=== PATIENT | female | born 1990 | race Caucasian/White ===

== ENCOUNTER 2017-03-24 15:50 | Emergency (ER) | payer SELFPAY ==
[2017-03-24] MEDS ORDERED: Ketorolac 30 MG/ML SDV IVPUSH ONE (16:11)
[2017-03-24] MEDS ORDERED: Ondansetron 4 MG Tab.DIS PO ONE (17:12)
--- NOTE | 2017-03-24 17:13 | EDM.PDOCBH ---
ED HPI GENERAL MEDICAL PROBLEM - General Chief Complaint: Behavioral/Psych Stated Complaint: Medical clearance Time Seen by Provider: 03/24/17 16:10 Source of Information: Reports: Patient, RN Notes Reviewed History Limitations: Reports: No Limitations - History of Present Illness INITIAL COMMENTS - FREE TEXT/NARRATIVE: 26 year old female presents to ED for medical clearance for admission to [facility]. 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 She recently started IV use, "in last few months". She had 1 period of sobriety while incarcerated in the past and completed a 3 day medical detox shortly after that a few years ago. Patient is seeking treatment because she's "had enough of it". Last drug use was heroin and meth 2 days ago. Patient has Rx for saboxone that she obtained from a provider in [facility] "a few weeks ago" and took one yesterday that "really helped" with her withdrawal symptoms. Currently she is having chills, "pain all over", muscle twitching, nausea, and diarrhea. History of depression and anxiety, has been treated in the past, "but didn't stick with it". She does report that she self mutilates by cutting. Has one remote suicide attempt in her teen years. Denies suicidal ideation or thoughts of harming others. Patient has a 13 year smoking history of 1/2-1 PPD. Denies alcohol use. Generalized Pain Score (Numeric/FACES): 7 - Related Data Allergies Allergy/AdvReac Type Severity Reaction Status Date / Time No Known Allergies Allergy Verified 03/24/17 16:00 Home Meds: Home Meds Buprenorphine HCl/Naloxone HCl [Suboxone 12 mg-3 mg Sl Film] 1 film SL ASDIRECTED 03/24/17 [History] Ondansetron [Zofran ODT] 4 mg PO Q8H PRN #10 tab.dis 03/24/17 [Rx] Past Medical History HEENT History: Reports: Otitis Media Respiratory History: Reports: SOB, Other (See Below) Other Respiratory History: "because I have alot of smoke build-up in my lungs." Genitourinary History: Reports: UTI, Recurrent [employer] History: Reports: Musculoskeletal History: Reports: Back Pain, Chronic Psychiatric History: Reports: Addiction, Anxiety, Depression Hematologic History: Reports: Anemia, Iron Deficiency - Infectious Disease History Infectious Disease History: Reports: Chicken Pox Social & Family History - Tobacco Use Smoking Status *Q: Current Every Day Smoker Years of Tobacco use: 13 Packs/Tins Daily: 1 - Caffeine Use Caffeine Use: Reports: Coffee, Energy Drinks - Recreational Drug Use Recreational Drug Use: Yes Drug Use in Last 12 Months: Yes Recreational Drug Type: Reports: Heroin, Marijuana/Hashish, Methamphetamine, Other (see below) Other Recreational Drug Type: Suboxine Recreational Drug Use Frequency: Daily ED ROS GENERAL - Review of Systems Review Of Systems: See Below Constitutional: Reports: Chills, Malaise, Fatigue, Diaphoresis, Decreased Appetite HEENT: Reports: No Symptoms Respiratory: Reports: No Symptoms Cardiovascular: Reports: No Symptoms Endocrine: Reports: No Symptoms GI/Abdominal: Reports: Diarrhea, Nausea. Denies: Abdominal Pain, Constipation, Vomiting : Reports: No Symptoms Musculoskeletal: Reports: Back Pain, Muscle Pain Skin: Reports: No Symptoms (scarred laceration rehman to bilat wrists, healed), Other Neurological: Reports: Headache. Denies: Confusion, Dizziness, Seizure, Tremors , Difficulty Walking Psychiatric: Reports: Anxiety, Depression Hematologic/Lymphatic: Reports: No Symptoms Immunologic: Reports: No Symptoms ED EXAM, BEHAVIORAL HEALTH - Physical Exam Exam: See Below Exam Limited By: No Limitations General Appearance: Alert, No Apparent Distress Eye Exam: Bilateral Eye: PERRL Ears: Normal External Exam Nose: Normal Inspection Throat/Mouth: Normal Inspection, Normal Lips, Normal Voice Head: Atraumatic, Normocephalic Neck: Normal Inspection, Full Range of Motion Respiratory/Chest: No Respiratory Distress, Lungs Clear, Normal Breath Sounds, No Accessory Muscle Use, Chest Non-Tender Cardiovascular: No Edema, No Murmur, Tachycardia (IB=698, regular) GI/Abdominal: Normal Bowel Sounds, Soft, Non-Tender, No Organomegaly, No Distention Back Exam: Normal Inspection Extremities: Normal Inspection, Normal Range of Motion, Non-Tender Neurological: Alert, Normal Mood/Affect, Normal Cognition, Oriented x 3 Psychiatric: Alert, Normal Affect, Normal Cognition, Normal Mood, Oriented Skin Exam: Warm, Dry, Intact, Normal color (No needle rehman noted to bilat antecubital fossa; patient states she is new to IV use and has never injected elsewhere) COURSE, BEHAVIORAL HEALTH COMP - Course Vital Signs: Last Vital Signs Temp 98.5 F 03/24/17 16:00 Pulse 106 H 03/24/17 16:00 Resp 16 03/24/17 16:00 BP 108/80 03/24/17 16:00 Pulse Ox 98 03/24/17 16:00 Orders, Labs, Meds: Active Orders 24 hr Category Date Time Status GC/CHLAMYDIA BY PCR [MOLEC] Stat Lab 03/24/17 19:25 Ordered Laboratory Tests 03/24/17 03/24/17 03/24/17 Range/Units 17:30 17:30 18:50 WBC 7.85 (3.98-10.04) K/mm3 RBC 4.89 (3.98-5.22) M/mm3 Hgb 14.0 (11.2-15.7) gm/L Hct 41.4 (34.1-44.9) % MCV 84.7 (79.4-94.8) fl MCH 28.6 (25.6-32.2) pg MCHC 33.8 (32.2-35.5) g/dl RDW Std Deviation 43.1 (36.4-46.3) fL Plt Count 228 (182-369) K/mm3 MPV 9.8 (9.4-12.3) fl Neut % (Auto) 68.4 (34.0-71.1) % Lymph % (Auto) 25.0 (19.3-51.7) % [place] % (Auto) 5.1 (4.7-12.5) % Eos % (Auto) 1.0 (0.7-5.8) Baso % (Auto) 0.5 (0.1-1.2) % Neut # (Auto) 5.37 (1.56-6.13) K/mm3 Lymph # (Auto) 1.96 (1.18-3.74) K/mm3 [place] # (Auto) 0.40 H (0.24-0.36) K/mm3 Eos # (Auto) 0.08 (0.04-0.36) K/mm3 Baso # (Auto) 0.04 (0.01-0.08) K/mm3 Sodium 144 (136-145) mEq/L Potassium 3.8 (3.5-5.1) mEq/L Chloride 107 (98-107) mEq/L Carbon Dioxide 25 (21-32) mEq/L Anion Gap 15.8 H (5-15) BUN 13 (7-18) mg/dL Creatinine 0.8 (0.55-1.02) mg/dL Est Cr Clr Drug Dosing 82.80 mL/min Estimated GFR (MDRD) > 60 (>60) mL/min BUN/Creatinine Ratio 16.3 (14-18) Glucose 95 (74-106) mg/dL Calcium 9.3 (8.5-10.1) mg/dL Total Bilirubin 0.3 (0.2-1.0) mg/dL AST 14 L (15-37) U/L ALT 20 (14-59) U/L Alkaline Phosphatase 66 (46-116) U/L Total Protein 7.5 (6.4-8.2) g/dl Albumin 3.7 (3.4-5.0) g/dl Globulin 3.8 gm/dL Albumin/Globulin Ratio 1.0 (1-2) TSH 3rd Generation 0.370 (0.358-3.74) uIU/mL Urine Color (Yellow) Urine Appearance (Clear) Urine pH (5.0-8.0) Ur Specific [place] (1.005-1.030) Urine Protein (Negative) Urine Glucose (UA) (Negative) Urine Ketones (Negative) Urine Occult Blood (Negative) Urine Nitrite (Negative) Urine Bilirubin (Negative) Urine Urobilinogen (0.2-1.0) Ur Leukocyte Esterase (Negative) Urine RBC (0-5) /hpf Urine WBC (0-5) /hpf Ur Epithelial Cells (0-5) /hpf Urine Bacteria (FEW) /hpf Urine Mucus (FEW) /hpf Urine HCG, Qual (NEGATIVE) Urine Opiates Screen Presumptive positive H (NEGATIVE) Ur Buprenorphine Scrn Presumptive positive H (NEGATIVE) Ur Oxycodone Screen Negative (NEGATIVE) Urine Methadone Screen Negative (NEGATIVE) Ur Propoxyphene Screen Negative (NEGATIVE) Ur Barbiturates Screen Negative (NEGATIVE) Ur Tricyclics Screen Negative (NEGATIVE) Ur Phencyclidine Scrn Negative (NEGATIVE) Ur Amphetamine Screen Presumptive positive H (NEGATIVE) U Methamphetamines Scrn Presumptive positive H (NEGATIVE) U Benzodiazepines Scrn Negative (NEGATIVE) U Cocaine Metab Screen Negative (NEGATIVE) U Marijuana (THC) Screen Presumptive positive H (NEGATIVE) Ethyl Alcohol 0.00 (0.00) gm% 03/24/17 03/24/17 Range/Units 18:50 18:50 WBC (3.98-10.04) K/mm3 RBC (3.98-5.22) M/mm3 Hgb (11.2-15.7) gm/L Hct (34.1-44.9) % MCV (79.4-94.8) fl MCH (25.6-32.2) pg MCHC (32.2-35.5) g/dl RDW Std Deviation (36.4-46.3) fL Plt Count (182-369) K/mm3 MPV (9.4-12.3) fl Neut % (Auto) (34.0-71.1) % Lymph % (Auto) (19.3-51.7) % [place] % (Auto) (4.7-12.5) % Eos % (Auto) (0.7-5.8) Baso % (Auto) (0.1-1.2) % Neut # (Auto) (1.56-6.13) K/mm3 Lymph # (Auto) (1.18-3.74) K/mm3 [place] # (Auto) (0.24-0.36) K/mm3 Eos # (Auto) (0.04-0.36) K/mm3 Baso # (Auto) (0.01-0.08) K/mm3 Sodium (136-145) mEq/L Potassium (3.5-5.1) mEq/L Chloride (98-107) mEq/L Carbon Dioxide (21-32) mEq/L Anion Gap (5-15) BUN (7-18) mg/dL Creatinine (0.55-1.02) mg/dL Est Cr Clr Drug Dosing mL/min Estimated GFR (MDRD) (>60) mL/min BUN/Creatinine Ratio (14-18) Glucose (74-106) mg/dL Calcium (8.5-10.1) mg/dL Total Bilirubin (0.2-1.0) mg/dL AST (15-37) U/L ALT (14-59) U/L Alkaline Phosphatase (46-116) U/L Total Protein (6.4-8.2) g/dl Albumin (3.4-5.0) g/dl Globulin gm/dL Albumin/Globulin Ratio (1-2) TSH 3rd Generation (0.358-3.74) uIU/mL Urine Color Yellow (Yellow) Urine Appearance Clear (Clear) Urine pH 7.0 (5.0-8.0) Ur Specific [place] 1.025 (1.005-1.030) Urine Protein Negative (Negative) Urine Glucose (UA) Negative (Negative) Urine Ketones Negative (Negative) Urine Occult Blood Negative (Negative) Urine Nitrite Negative (Negative) Urine Bilirubin Negative (Negative) Urine Urobilinogen 0.2 (0.2-1.0) Ur Leukocyte Esterase 1+ H (Negative) Urine RBC 0-5 (0-5) /hpf Urine WBC 5-10 H (0-5) /hpf Ur Epithelial Cells 0-5 (0-5) /hpf Urine Bacteria Few (FEW) /hpf Urine Mucus Few (FEW) /hpf Urine HCG, Qual Negative (NEGATIVE) Urine Opiates Screen (NEGATIVE) Ur Buprenorphine Scrn (NEGATIVE) Ur Oxycodone Screen (NEGATIVE) Urine Methadone Screen (NEGATIVE) Ur Propoxyphene Screen (NEGATIVE) Ur Barbiturates Screen (NEGATIVE) Ur Tricyclics Screen (NEGATIVE) Ur Phencyclidine Scrn (NEGATIVE) Ur Amphetamine Screen (NEGATIVE) U Methamphetamines Scrn (NEGATIVE) U Benzodiazepines Scrn (NEGATIVE) U Cocaine Metab Screen (NEGATIVE) U Marijuana (THC) Screen (NEGATIVE) Ethyl Alcohol (0.00) gm% Medications Discontinued Medications Generic Name Dose Route Start Last Admin Trade Name Freq PRN Reason Stop Dose Admin Azithromycin 1,000 mg 03/24/17 19:26 03/24/17 20:09 Zithromax PO 03/24/17 19:27 1,000 mg ONETIME ONE Administration Ceftriaxone Sodium 250 mg/ 0 mg 03/24/17 19:30 03/24/17 20:10 Lidocaine HCl 0.5 ml IM 0.5 syringe Q24H KARYN Administration Ondansetron HCl 4 mg 03/24/17 17:12 03/24/17 17:18 Zofran Odt PO 03/24/17 17:13 4 mg ONETIME ONE Administration Re-Assessment/Re-Exam: CBC, CMP, TSH are unremarkable. UA reveals 5-10 WBCs and 1+ leukocytes. Patient has no urinary symptoms, will send urine for culture. Hcg negative. UDS is positive for opioids, buprenorphine, meth, amphetamines, and THC. ETOH is 0. Later in her stay, the patient reported possible exposure to chlamydia. Will send urine Gc/chlamydia. This will take a couple hours to come back. She will be treated with Azithromycin 1000mg PO and Rocephin 250mg IM. Patient was resting with no acute withdrawal symptoms. Her vitals remained stable throughout her visit. She had no tachycardia. She has been medically cleared. I called and spoke to Katerina from [facility]. They have accepted the patient for the [facility]. They will come get her. I am hesitant to prescribe benzos due to the multiple drugs that the patient is using. We will treat her withdrawal symptoms with Benadryl and Zofran. When going over the discharge plan, the patient requested pain medication. I explained to her that we do not prescribe opioids for opioid withdrawal. She is prescribed suboxone and is also utilizing other opioids. Due to concerns for safety and mixing several opioids, I will not be prescribed her any controlled substances. She can take naproxyn for pain. Discharge instructions as documented. Departure - Departure Time of Disposition: 19:55 Disposition: Home, Self-Care 01 Condition: Good Clinical Impression: Substance abuse - Discharge Information Prescriptions: Ondansetron [Zofran ODT] 4 mg PO Q8H PRN #10 tab.dis PRN Reason: Nausea Instructions: Finding Treatment for Addiction Referrals: PCP,None [Primary Care Provider] - Forms: ED Department Discharge Additional Instructions: Go to [facility] for treatment Zofran 4mg every 8 hours as needed for nausea Benadryl 1-2 tabs every 6-8 hours as needed for withdrawal symptoms - My Orders Last 24 Hours: My Active Orders 03/24/17 19:25 GC/CHLAMYDIA BY PCR [MOLEC] Stat - Assessment/Plan Last 24 Hours: My Active Orders 03/24/17 19:25 GC/CHLAMYDIA BY PCR [MOLEC] Stat
[2017-03-24] MEDS ORDERED: Azithromycin 250 MG Tab PO ONE (19:26)
[2017-03-24] MEDS ORDERED: cefTRIAXone 250 MG, Lidocaine 1% 0.5 ML IM SCH ×2 (19:30)
[2017-03-24 21:54] LABS: C. TRACHOMATIS BY PCR NOT DETECTED; N. GONORRHOEAE BY PCR NOT DETECTED
== END 2017-03-24 20:20 | disposition home or self-care (01) ==
LOC: JD.ED 15:50
DX: F15.10 Other stimulant abuse, uncomplicated (principal); F11.10 Opioid abuse, uncomplicated; F12.10 Cannabis abuse, uncomplicated; F17.210 Nicotine dependence, cigarettes, uncomplicated
CPT/HCPCS: 36415; 80053; 80306; 81001; 81025; 84443; 85025; 87491; 87591; 96372; 99284; A9270; G0480; J0696; 99283

== ENCOUNTER 2017-03-26 17:35 | Emergency (ER) | payer SELFPAY ==
--- NOTE | 2017-03-26 19:01 | EDM.PDOC ---
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 UTI Time Seen by Provider: 03/26/17 18:24 - History of Present Illness INITIAL COMMENTS - FREE TEXT/NARRATIVE: 26-year-old female presents emergency room vaginal discharge. Patient was treated for GC and Chlamydia 2 days ago after suspected exposure however GC and Chlamydia testing was negative. Patient continues to have discharge present. It is a foul-smelling dark colored discharge. She does not have itching in the vaginal area. Patient denies any burning or frequency with urination no frequency no flank pain. Patient had urinalysis done on her visit here 2 days ago that was not diagnostic for UTI. She received oral Zithromax 1 g and IV Rocephin for the suspected STD. Generalized Pain Score (Numeric/FACES): 7 - Related Data Allergies Allergy/AdvReac Type Severity Reaction Status Date / Time No Known Allergies Allergy Verified 03/26/17 18:07 Home Meds: Home Meds Ondansetron [Zofran ODT] 4 mg PO Q8H PRN #10 tab.dis 03/24/17 [Rx] LORazepam [Ativan] 0 mg PO ASDIRECTED PRN 03/26/17 [History] traZODone 50 mg PO ASDIRECTED PRN 03/26/17 [History] Past Medical History HEENT History: Reports: Otitis Media Respiratory History: Reports: SOB, Other (See Below) Other Respiratory History: "because I have alot of smoke build-up in my lungs." Genitourinary History: Reports: UTI, Recurrent [employer] MANAGER History: Reports: Musculoskeletal History: Reports: Back Pain, Chronic Psychiatric History: Reports: Addiction, Anxiety, Depression Hematologic History: Reports: Anemia, Iron Deficiency - Infectious Disease History Infectious Disease History: Reports: Chicken Pox Social & Family History - Tobacco Use Smoking Status *Q: Current Every Day Smoker Years of Tobacco use: 13 Packs/Tins Daily: 1 - Caffeine Use Caffeine Use: Reports: Coffee, Energy Drinks, Soda, Tea - Recreational Drug Use Recreational Drug Use: Yes Drug Use in Last 12 Months: Yes Recreational Drug Type: Reports: Heroin, Methamphetamine, Oxycodone Other Recreational Drug Type: Suboxine Recreational Drug Use Frequency: Daily ED ROS GENERAL - Review of Systems Review Of Systems: See Below Constitutional: Reports: No Symptoms Respiratory: Reports: No Symptoms Cardiovascular: Reports: No Symptoms GI/Abdominal: Reports: No Symptoms : Reports: Discharge. Denies: Dysuria, Flank Pain, Frequency, Hematuria, Urgency Neurological: Reports: No Symptoms ED EXAM, RENAL/ - Physical Exam Exam: See Below Exam Limited By: No Limitations General Appearance: Alert, No Apparent Distress Respiratory/Chest: No Respiratory Distress, Lungs Clear, Normal Breath Sounds Cardiovascular: Regular Rate, Rhythm, No Edema, No Murmur GI/Abdominal: Normal Bowel Sounds, Soft, Non-Tender (Female) Exam: Normal External Exam, Other (Speculum exam is done she has dramatic slightly dark cream-colored discharge this is fairly thin no thick discharge discharge is not CONSISTENT with a yeast infection she has no vaginal mucosal irritation.) Course - Vital Signs Last Recorded V/S: Last Vital Signs Temp 37.1 C 03/26/17 18:03 Pulse 110 H 03/26/17 18:03 Resp 18 03/26/17 18:03 BP 112/74 03/26/17 18:03 Pulse Ox 100 03/26/17 18:03 - Orders/Labs/Meds Meds: Medications Discontinued Medications Generic Name Dose Route Start Last Admin Trade Name Freq PRN Reason Stop Dose Admin Metronidazole 2,000 mg 03/26/17 19:30 03/26/17 19:36 Flagyl PO 03/26/17 19:31 2,000 mg ONETIME ONE Administration - Re-Assessments/Exams Free Text/Narrative Re-Assessment/Exam: 03/26/17 18:59 GC and Chlamydia done 2 days ago is negative. Urinalysis is not diagnostic for UTI. These will not be repeated at this point her exam is not consistent with a yeast infection we will check a wet mount. 03/26/17 20:21 Wet mount suggestive of trichomonas patient received 2 g of Flagyl and is doing well at this time she will be discharged Departure - Departure Time of Disposition: 20:21 Disposition: Home, Self-Care 01 Clinical Impression: Infection due to trichomonas - Discharge Information Referrals: PCP,None [Primary Care Provider] - Forms: ED Department Discharge Additional Instructions: Return to the emergency room with questions problems or worsening symptoms. Your exam today is consistent with trichomonas you've received the treatment for it and should do better within a few days.
[2017-03-26] MEDS ORDERED: metroNIDAZOLE 500 MG Tab PO ONE (19:30)
== END 2017-03-26 20:30 | disposition home or self-care (01) ==
LOC: JD.ED 17:35
DX: A59.9 Trichomoniasis, unspecified (principal); F17.210 Nicotine dependence, cigarettes, uncomplicated; F32.9 Major depressive disorder, single episode, unspecified; Z86.2 Personal history of diseases of the blood and blood-forming organs and certain disorders involving the immune mechanism
CPT/HCPCS: 87210; 87808; 99283; A9270